=== PATIENT | female | born 1940 | race Caucasian/White ===

== ENCOUNTER 2022-02-25 13:54 | Emergency (ER) | payer MEDICARE, OTHER ==
[2022-02-25 14:50] LABS: BASOPHIL 0.2 % (0-2); EOSINOPHIL 0 % (0-7); HCT 41.8 % (37.0-47.0); HGB 13.6 g/dl (12.5-16.0); LYMPHOCYTE 6.2 % (15-48); MCH 30.8 pg (25.0-31.0); MCHC 32.5 g/dL (32.0-36.0); MCV 94.8 fL (78.0-100.0); MONOCYTE 3.3 % (0-12); MPV 10.4 fL (6.0-9.5); NEUTROPHIL 89.8 % (41-80); NRBC 0; PLT 271 K/uL (150-400); RBC 4.41 M/uL (4.20-5.40); RDW 12.4 % (11.5-14.0); WBC 15.2 K/uL (4.0-10.5)
[2022-02-25 15:13] LABS: BILIRUBIN - TOTAL 0.6 mg/dL (0.2-1.0); BUN/CREAT RATIO (CALC) 36.4 RATIO; CREATININE 0.66 mg/dL (0.51-0.95); GLOBULIN (CALCULATION) 3.5 g/dL; TOTAL PROTEIN 7.5 g/dL (6.4-8.2)
[2022-02-25 16:01] LABS: BILIRUBIN NEGATIVE (NEGATIVE); BLOOD 3+ Ery/uL (NEGATIVE); CLARITY CLEAR (CLEAR); COLOR YELLOW (YELLOW); GLUCOSE (U) NORMAL (NORMAL); LEUKOCYTES 1+ Leu/uL (NEGATIVE); NITRITE POSITIVE (NEGATIVE); PROTEIN NEGATIVE (NEGATIVE); SPECIFIC GRAVITY >=1.030 (1.001-1.030); UROBILINOGEN 0.2 mg/dL (0.2-1.0)
[2022-02-25 16:07] LABS: BACTERIA 3+
[2022-02-25 16:08] LABS: MUCOUS MODERATE
[2022-02-25] MEDS ORDERED: MACROBID100 MG PO (17:51)
== END 2022-02-25 18:28 | disposition home or self-care (01) ==
LOC: FER 13:54
PROVIDERS: Physician Assistant Medical
DX: N39.0 Urinary tract infection, site not specified (principal); D18.09 Hemangioma of other sites; Z88.6 Allergy status to analgesic agent
CPT/HCPCS: 36415; 80053; 81001; 83690; 85025; J0696; J2270; J2405; Q9967